=== PATIENT | male | born 1950 | race African-American/Black ===

== ENCOUNTER → 2018-12-21 14:14 | Emergency (ER) | payer OTHER ==
[2018-12-21 14:23] VITALS: BP 157/85
--- NOTE | 2018-12-22 06:52 | ED ---
Back Pain - HPI Summary HPI Summary: Patient is a 68-year-old male presenting to the ED after a slip and fall to his left hip which occurred just 1 hour [employer]. He endorses left lower back and hip pain which is nonradiating. He states he remains ambulatory. Denies any numbness or tingling. He states symptoms have improved since being in the ED he has not taken anything [id number] for relief. He has not used heat or ice to the area. He denies any abrasions, signs of trauma, bruising, or erythema. Denies any swelling. Denies hitting head or LOC. He has never injured the hip or back in the past. He denies any pain directly over the spine. - History of Current Complaint Chief Complaint: EDBackInjuryPain Stated Complaint: FALL/ BACK PAIN Time Seen by Provider: 12/21/18 15:26 Hx Obtained From: Patient, Family/[employer] Onset/Duration: Sudden Onset Onset/Duration: Started Hours Ago Timing: Constant Back Pain Location: Is Discrete @ - left sided hip and low back Pain Intensity: 7 Character: Aching Aggravating Symptom(s): Movement Alleviating Symptom(s): Rest, Position Associated Signs And Symptoms: Positive: Negative. Negative: Swelling, Redness , Bruising, Weakness, Numbness - Risk Factors AAA Risk Factors: Negative TAD Risk Factors: Negative Cauda Equina Risk Factors: Negative Epidural Abscess Risk Factors: Negative - Allergies/Home Medications Allergies/Adverse Reactions: Allergies Allergy/AdvReac Type Severity Reaction Status Date / Time No Known Allergies Allergy Verified 12/21/18 14:20 PMH/Surg Hx/FS Hx/Imm Hx Previously Healthy: Yes - Immunization History Hx Pertussis Vaccination: No Immunizations Up to Date: Yes Infectious Disease History: No Infectious Disease History: Denies: Traveled Outside the [place] in Last 30 Days - Social History Occupation: Unemployed Lives: With Family Alcohol Use: Occasionally Hx Substance Use: No Substance Use Type: Reports: None Hx Tobacco Use: No Smoking Status (MU): Never Smoked Tobacco Review of Systems Constitutional: Negative Negative: Fever, Chills, Fatigue, Skin Diaphoresis Negative: Palpitations, Chest Pain Negative: Shortness Of Breath, Cough Genitourinary: Negative Positive: no symptoms reported, see HPI Positive: Arthralgia, Myalgia Negative: Rash, Bruising Neurological: Negative All Other Systems Reviewed And Are Negative: Yes Physical Exam Triage Information Reviewed: Yes Vital Signs On Initial Exam: Initial Vitals Temp Pulse Resp BP Pulse Ox 98.9 F 80 18 157/85 99 12/21/18 14:16 12/21/18 14:16 12/21/18 14:16 12/21/18 14:16 12/21/18 14:16 Vital Signs Reviewed: Yes Appearance: Positive: Well-Appearing, Well-Nourished Skin: Positive: Warm, Skin Color Reflects Adequate Perfusion Head/Face: Positive: Normal Head/Face Inspection Eyes: Positive: EOMI, SRINI, Conjunctiva Clear Neck: Positive: Supple, No Lymphadenopathy Respiratory/Lung Sounds: Positive: Clear to Auscultation, Breath Sounds Present Cardiovascular: Positive: RRR, Pulses are Symmetrical in both Upper and Lower Extremities Musculoskeletal: Positive: Pain @ - left sided hip pain/low back Neurological: Positive: Alert, Oriented to Person Place, Time, CN Intact II-III , Reflexes Intact, Speech Normal Psychiatric: Positive: Normal, Affect/Mood Appropriate AVPU Assessment: Alert Diagnostics - Vital Signs Vital Signs Temp Pulse Resp BP Pulse Ox 12/21/18 14:16 98.9 F 80 18 157/85 99 - Laboratory Lab Statement: Any lab studies that have been ordered have been reviewed, and results considered in the medical decision making process. Back Pain Course/Dx - Course Course Of Treatment: During the course of treatment, the patient is evaluated for left lower back and hip pain. X-rays of the hip and pelvis obtained which are negative. On physical examination, patient remains ambulatory. Flexion and extension about the hip and knee without discomfort. External rotation and internal rotation of the left hip is also without discomfort. Patient is able to flex fully at the hips and touch toes. There are no signs of trauma, no swelling, bruising, or erythema to the area. On deep palpation, patient feels discomfort over a small area to the left lower back just above the iliac crest. Patient also states he has been able to urinate several times since the accident and denies any gross blood. No weakness noted bilaterally to the lower extremities. No numbness or tingling noted. No pain on palpation directly onto the spine throughout cervical, thoracic and lumbar. No step-off noted. Patient has full strength on plantar and dorsiflexion. He will be discharged home with a left sided blunt injury. Encouraged Ibuprofen. - Diagnoses Differential Diagnosis/HQI/PQRI: Positive: Arthritis, Fracture, Herniated Disc, Strain, Sprain Provider Diagnoses: Low back pain Discharge - Sign-Out/Discharge Documenting (check all that apply): Patient Departure - Discharge Plan Condition: Stable Disposition: HOME Referrals: No Primary Care Phys,NOPCP [Primary Care Provider] - Additional Instructions: Ibuprofen 600mg three times daily Ice today and heat tomorrow [facility] to follow up with a PCP [phone] - Billing Disposition and Condition Condition: STABLE Disposition: Home
== END | disposition home or self-care (01) ==
LOC: ED 14:14
DX: M54.5 Low back pain (principal); M54.9 Dorsalgia, unspecified; M25.552 Pain in left hip
CPT/HCPCS: 99282